=== PATIENT | female | born 2005 | race Caucasian/White ===

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

== ENCOUNTER 2024-08-05 17:14 | Emergency (ER) | payer OTHER ==
[~2024-08-05] VITALS: Ht 162.6 cm; Wt 83.3 kg
[~2024-08-05 17:14] MED LIST changes: +ONDA-282 PO; -ONDA4TAB6 PO
[2024-08-05] MEDS: NS 1,000 ML IV ONE (17:42)
[2024-08-05 17:55] LABS: HEMATOCRIT 38.5 % (36.0-47.0); HEMOGLOBIN 12.9 g/dl (12.0-15.5); MEAN CORPUSCULAR HEMOGLOBIN 28.4 pg (27.0-33.0); MEAN CORPUSCULAR HGB CONC 33.5 g/dl (32.0-36.5); MEAN CORPUSCULAR VOLUME 84.6 fl (80.0-96.0); PLATELET COUNT, AUTOMATED 345 10^3/uL (150-450); RED BLOOD COUNT 4.55 10^6/uL (4.00-5.40); WHITE BLOOD COUNT 11.5 10^3/uL (4.0-10.0)
[2024-08-05] MEDS: ACETAMINOPHEN 325 MG TAB PO ONE (18:15)
[2024-08-05 18:18] LABS: BLOOD UREA NITROGEN 10 MG/DL (9-23); CALCIUM LEVEL 8.5 MG/DL (8.5-10.1); CARBON DIOXIDE LEVEL 28 MMOL/L (20-31); CHLORIDE LEVEL 110 MMOL/L (98-107); CREATININE FOR GFR 0.77 MG/DL (0.55-1.30); GLUCOSE, FASTING 103 MG/DL (60-100); SODIUM LEVEL 143 MMOL/L (136-145)
[2024-08-05 18:23] LABS: HCG, SERUM QUALITATIVE NEGATIVE (NEGATIVE)
[2024-08-05] MEDS ORDERED: HOLTER MONITOR XX (20:39)
[2024-08-05 21:07] VITALS: BP 108/66; TEMP 98.2; O2SAT 96
== END 2024-08-05 20:18 | disposition home or self-care (01) ==
LOC: EDBD 17:14 → M ED 17:14
DX: R55 Syncope and collapse (principal); S93.402A Sprain of unspecified ligament of left ankle, initial encounter; S80.912A Unspecified superficial injury of left knee, initial encounter; W19.XXXA Unspecified fall, initial encounter; F90.9 Attention-deficit hyperactivity disorder, unspecified type; F17.200 Nicotine dependence, unspecified, uncomplicated; Z79.83 Long term (current) use of bisphosphonates; Y92.009 Unspecified place in unspecified non-institutional (private) residence as the place of occurrence of the external cause; Y93.89 Activity, other specified; Y99.9 Unspecified external cause status

== ENCOUNTER → 2024-08-26 | Outpatient (CLI) | payer OTHER ==
[~2024-08-26] MED LIST changes: +HOLTER MONITOR XX
== END ==
LOC: M EKG 11:53
PROVIDERS: ATTEND Emergency Medicine
DX: R00.2 Palpitations (principal)